=== PATIENT | male | born 1985 | race Caucasian/White ===

== ENCOUNTER 2023-06-04 21:00 | Emergency (ER) | payer BC ==
[~2023-06-04] VITALS: Ht 182.9 cm; Wt 112.9 kg
[2023-06-04] MEDS ORDERED: WEGOVY2.4 MG/0.7 SQ (21:31)
== END 2023-06-05 02:43 | disposition designated cancer center or children's hospital (05) ==
LOC: ER 21:00
DX: R04.0 Epistaxis (principal)